=== PATIENT | male | born 1990 | race Caucasian/White ===

== ENCOUNTER 2019-01-03 18:00 | Emergency (ER) | payer OTHER ==
[~2019-01-03] VITALS: Ht 190.5 cm; Wt 69.5 kg
[2019-01-03 18:02] VITALS: Ht 190.5 cm; Wt 69.5 kg
[2019-01-03] MEDS ORDERED: HYDROCODONE/APAP (5/325) TAB PO ONE (19:00)
[2019-01-03] MEDS ORDERED: LIDOCAINE 1% (MDV) 20 ML INJ ONE (20:35)
[2019-01-03] MEDS ORDERED: IBUP-1542 PO (21:28)
[2019-01-03] MEDS ORDERED: ONDANSETRON (ODT) 4 MG TAB ODT STA (21:55)
[2019-01-03 22:00] VITALS: BP 117/77; PULSE 90; RESP 20
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
== END 2019-01-03 22:13 | disposition home or self-care (01) ==
LOC: E/R 18:00
DX: S01.511A Laceration without foreign body of lip, initial encounter (principal); R40.2142 Coma scale, eyes open, spontaneous, at arrival to emergency department; R40.2362 Coma scale, best motor response, obeys commands, at arrival to emergency department; R40.2252 Coma scale, best verbal response, oriented, at arrival to emergency department; S02.2XXA Fracture of nasal bones, initial encounter for closed fracture; S40.211A Abrasion of right shoulder, initial encounter; S30.811A Abrasion of abdominal wall, initial encounter; S00.03XA Contusion of scalp, initial encounter; V18.4XXA Pedal cycle driver injured in noncollision transport accident in traffic accident, initial encounter
CPT/HCPCS: 70450; 70486